=== PATIENT | female | born 1950 | race Caucasian/White ===

== ENCOUNTER 2018-07-11 16:43 | Emergency (ER) | payer OTHER ==
[~2018-07-11] VITALS: Ht 152.4 cm; Wt 109.8 kg
[2018-07-11 17:03] VITALS: Ht 152.4 cm; Wt 109.8 kg
[2018-07-11 17:37] VITALS: BP 136/78
== END 2018-07-11 17:37 | disposition home or self-care (01) ==
LOC: ED 16:43
DX: L84 Corns and callosities (principal); E66.01 Morbid (severe) obesity due to excess calories; Z98.890 Other specified postprocedural states

== ENCOUNTER 2019-01-27 01:25 | Inpatient (IN) | payer OTHER ==
[~2019-01-27] VITALS: Ht 162.6 cm; Wt 101.6 kg
--- NOTE | 2019-01-27 01:43 | NUR ---
PT INCONTINENT. POOR SKIN. ATTEMPTING TO OBTAIN VITALS AND PROVIDE INCONTINENT CARE.
[2019-01-27 02:08] LABS: PLATELET COUNT 344 x10^3mcL (130-400)
--- NOTE | 2019-01-27 02:08 | NUR ---
PT PRESENTS TO ED VIA EMS FOR EVAL. PER REPORT RECEIVED, PT LIVES WITH SON WHO CALLED 911 BECAUSE PT IS NOT ACTING HERSELF. PT DENIES ALL C/O TO EMT AND IS AAOX4. PT WAS REFUSING TRANSFER TO ED. PT IS WHEELCHAIR BOUND AND INCONTINENT. UPON ARRIVAL TO ED, PT NOTED TO BE AAOX4, COOPERATIVE, DENIES ALL C/O AND PAIN. NOTED TO HAVE POOR HYGIENE. WHILE INCONTINENT CARE, PT NOTED TO HAVE REDNESS AND RAW SKIN FROM LOWER ABDOMEN TO GENITAL AREA. +YELLOW EXUDATE, FOUL ODOR, TENDERNESS, SWELLING. REDNESS AND WOUND ALSO NOTED TO LOWER BACK/BUTTOCKS AREA. SKIN TEAR TO L FOREARM IN 2 PLACES. PICTURES TAKEN BY ABE RN TO ADD TO CHART. INCONTINENT CARE GIVEN BY 3 RNs. PT TOLERATED PROCEDURE FAIRLY DUE TO PAIN. ERP, DR ARMAS, AWARE. ATTEMPTED TO OBTAIN URINE SPECIMEN. UNABLE TO ADVANCE CATHETER DUE TO PAIN AND SWELLING. EMT, EVERT, AT BEDSIDE ATTEMPTING TO OBTAIN EKG. PT HAS A HARD TIME LYING ON BACK DUE TO RAW SKIN/WOUNDS.
[2019-01-27 02:11] LABS: BASOPHIL % 0 % (0-2)
[2019-01-27 02:19] LABS: rbc morphology (normal/abnorm) ABNORMAL (NORMAL); tear drop cell (dacryocyte) 1+
[2019-01-27 02:23] LABS: BILIRUBIN TOTAL 0.65 mg/dL (0.20-1.00); CALCIUM 9.4 mg/dL (8.5-10.1); CARBON DIOXIDE 33.7 mmol/L (21-32); TOTAL PROTEIN, SERUM 7.3 g/dL (6.4-8.2)
--- NOTE | 2019-01-27 02:23 | NUR ---
X-RAY TECH AT BEDSIDE. PT REFUSING AT THIS TIME. PT DOESN'T WANT TO LAY ON HER BACK AND DOESN'T WANT HARD BOARD OF X-RAY TO BE PLACED ON HER BACK.
--- NOTE | 2019-01-27 02:24 | NUR ---
PT OFFERED PILLOW AND BLANKET BUT REFUSED AT THIS TIME.
[2019-01-27 02:26] LABS: ALBUMIN 2.9 g/dL (3.4-5.0)
[2019-01-27 02:28] LABS: POTASSIUM SERUM 2.3 mmol/L (3.5-5.1)
[2019-01-27] MEDS ORDERED: GOOD SENSE ASPI81 M3 PO (02:34)
[2019-01-27] MEDS ORDERED: HYDROCHLOROTHIA25 MG PO (02:34)
[2019-01-27] MEDS ORDERED: LEXAPRO5 M1 PO (02:35)
[2019-01-27] MEDS ORDERED: D3-50001 TAB PO (02:35)
[2019-01-27] MEDS ORDERED: MIRTAZAPINE15 M2 PO (02:37)
--- NOTE | 2019-01-27 02:37 | NUR ---
MED REC DONE. VERIFIED WITH SON.
--- NOTE | 2019-01-27 02:38 | NUR ---
PT'S SON AT BEDSIDE - JENNIFER SMYTH (#[phone]) - STS HE IS PT'S MEDICAL RECORDS ASSISTANT AND TODAY HE NOTED PT TO BE COMBATIVE AND INCONTINENT WHICH IS NOT COMMON TO PT. SON ALSO STATES HE ONLY NOTED REDNESS TO SKIN IN THE LAST 48HRS BECAUSE PT HAS NOT BEEN ALLOWING HIM TO CLEAN HER DUE TO PAIN. SON ALSO REPORTS THAT TUCKPOINTER WAS RUDE TO PT SO "I KICKED HER OUT AND THEY NEVER SENT ANOTHER ONE." SON ALSO STS THAT DUE TO HEAVY WORK SCHEDULE HE CHECKS ON PT IN THE AM TO GIVE PT MEDS AND FOOD AND AGAIN AT NIGHT TO ASSIST HER TO BR. AND OTHER SON ASSIST DURING THE DAY BUT NOT MUCH. IS ALCOHOLIC.
--- NOTE | 2019-01-27 03:24 | NUR ---
PT INCONTINENT OF URINE. UNABLE TO COLLECT SPECIMEN AT THIS TIME. INCONTINENT CARE GIVEN. PT ROTATED IN BED TO PREVENT SKIN BREAKDOWN. PT COOPERATIVE AT TIME AND REFUSING ROTATION AT TIMES DUE TO PAIN.
--- NOTE | 2019-01-27 03:38 | NUR ---
ANTIBIOTIC MED ADMINISTRATION PENDING POTASSIUM MED COMPLETION.
--- NOTE | 2019-01-27 04:23 | NUR ---
SPOKE WITH [place] DIVISION HEAD - INFORMATION PROVIDED ON PT'S PRESENTATION AND CURRENT STATUS. PER CONVERSATION, PT TO POSSIBLY TRANSFER TO [place] FOR INSURANCE REASONS. PT AGREED TO TRANSFER IF SON APPROVES. SON'S CONTACT # GIVEN TO DIVISION HEAD.
--- NOTE | 2019-01-27 04:25 | NUR ---
PT SLEEPING COMFORTABLY IN BED. EASILY AROUSABLE WITH VERBAL STIMULI. BREATHING EASY AND UNLABORED. SPEAKS IN FULL CLEAR SENTENCES. NO OBVIOUS DISTRESS AT THIS TIME. WILL CONTINUE TO MONITOR.
[2019-01-27 05:34] LABS: PHOSPHOROUS 3.3 mg/dL (2.5-4.9)
--- NOTE | 2019-01-27 06:01 | NUR ---
PT INCONTINENT OF URINE AND STOOL. INCONTINENT CARE GIVEN. PT ROTATED IN BED TO PREVENT WORSENING OF SKIN BREADOWN. PT TOLERATING FAIRLY DUE TO PAIN. DENIES PAIN BUT NOTED TO MOAN ON ROTATION AND INCONTINENT CARE. WILL CONTINUE TO MONITOR.
--- NOTE | 2019-01-27 06:47 | NUR ---
PT BEING ADMITTED. AWAITING BED ASSIGNMENT.
--- NOTE | 2019-01-27 07:15 | NUR ---
PER HARVINDER SINGER, PT OK TO BE ADMITTED UPSTAIRS WITHOUT URINE SAMPLE PER MD ARMAS.
--- NOTE | 2019-01-27 07:20 | NUR ---
REPORT GIVEN TO SIMON BLANTON. OPPORTUNITY GIVEN TO ASK QUESTIONS. PT'S CARE COMPLETED BY THIS RN AT THIS TIME.
--- NOTE | 2019-01-27 07:40 | NUR ---
PT IS AWAKE AND ALERT X 4. DENIES ANY PAIN AT THIS TIME, UNLESS TOUCHED. MOVED PATIENT ON GURNEY TO POSITION OF COMFORT, CHECKED FOR INCONTINENCE OF URINE AND FECES AND PT IS CLEAN AT THIS TIME. NS AND K+ INFUSING AT THIS TIME WITH NO INCIDENCE. PT REMAINS HOOKED UP TO FULL MONITORS, SIDE RAILS UP, IN FULL VIEW OF NURSING STATION, WILL CONTINUE TO MONITOR.
--- NOTE | 2019-01-27 07:52 | NUR ---
REPORT GIVEN TO MASSIEL ON MS/ T FOR FURTHER CARE OF PT
--- NOTE | 2019-01-27 08:00 | NUR ---
RECEIVED PATIENT FROM ED. PATIENT IS AWAKE, ALERT AND ORIENTED. UNABLE TO AMBULATE. TRANSITIONED FROM GUERNEY TO BED WITH 3 PERSON ASSIST. VS STABLE. TELE#13 APPLIED TO PATIENT READING SR, HR 70. ERYTHEMA NOTED TO ABD AND GENITAL AREA WITH ASSOCIATED FOUL ODOR. PATIENT ADMITTED FOR CELLULITIS AND HYPOKALEMIA. PATIENT DENIES CRAMPING AND CHEST PAIN. ON ROOM AIR, BREATHING EVEN AND UNLABORED. IV SITE NOTED TO RAC, IVF INFUSING WELL ORDERED, NO S/S ERYTHEMA AT SITE. K-RIDER REMAINS RUNNING FROM ED AT THIS TIME. PATIENT ORIENTED TO ROOM. LOW AIR LOSS MATTRESS IN PLACE. FALL PREC IN PLACE. SEIZURE PREC IN PLACE. WILL CONTINUE PLAN OF CARE.
[2019-01-27 08:40] VITALS: BP 102/65
--- NOTE | 2019-01-27 11:13 | NUR ---
INTERDRY APPLIED TO ABD FOLD AT THIS TIME.
[2019-01-27 12:52] VITALS: BP 107/64
--- NOTE | 2019-01-27 13:25 | NUR ---
PATIENT REFUSED CATHETER PLACEMENT AT THIS TIME.
--- NOTE | 2019-01-27 13:27 | NUR ---
PATIENT REFUSING ALL MEDICATIONS AT THIS TIME. PATIENT EDUCATED ON REFUSAL AND IMPORTANCE OF CARE WHILE IN THE HOSPITAL. PATIENT STATES "I WOULDN'T BE HERE IF IT WASN'T FOR MY STUPID SON. I WANT TO GO HOME."
--- NOTE | 2019-01-27 13:43 | NUR ---
PATIENT REFUSES ADDITIONAL PHOTOGRAPHS OF WOUNDS.
[2019-01-27 16:39] VITALS: BP 102/64
[2019-01-27 18:13] LABS: CHLORIDE SERUM 99 mmol/L (98-107); CREATININE SERUM 0.6 mg/dL (0.6-1.0); GFR1 > 60 mL/min; GLUCOSE SERUM 71 mg/dL (74-106); SODIUM SERUM 139 mmol/L (136-145)
[2019-01-27 18:37] LABS: POTASSIUM SERUM 2.6 mmol/L (3.5-5.1)
--- NOTE | 2019-01-27 18:53 | NUR ---
PATIENT RESTING EASY IN NO ACUT DISTRESS. FALL PREC IN PLACE. PATIENT CARE TO BE ENDOSRED TO TABLE WORKER PACKAGER NURSE.
--- NOTE | 2019-01-27 19:10 | NUR ---
RECEIVED PT FROM PREVIOUS SHIFT NURSE. PT AOX4, DENIES FLORES/DIZZINESS. TELE #2, SR, HR 65. DENIES CP/PRESSURE. DENIES SOB/DIFFICULTY BREATHING, ON RA. IV TO RAC, INTACT AND PATENT. BED IN LOWEST POSITION. CALL LIGHT WITHIN REACH. WILL CONTINUE TO MONITOR.
[2019-01-27 20:59] VITALS: BP 100/52
[2019-01-27 23:22] VITALS: Ht 162.6 cm; Wt 101.6 kg
--- NOTE | 2019-01-28 02:30 | NUR ---
PT RESTING IN BED. RR EVEN AND UNLABORED. IN NO ACUTE DISTRESS. CALL LIGHT WITHIN REACH. BED IN LOWEST POSITION. WILL CONTINUE TO MONITOR.
[2019-01-28 04:03] VITALS: BP 89/42
[2019-01-28 05:56] VITALS: BP 86/44
--- NOTE | 2019-01-28 05:56 | NUR ---
BP 86/44 MAP 58, HR 80. PT ASYMPTOMATIC. DR. LABMERT PAGED. AWAITING CALL BACK.
[2019-01-28 06:29] LABS: BASOPHIL % 0.4 % (0-2); PLATELET COUNT 276 x10^3mcL (130-400)
--- NOTE | 2019-01-28 06:35 | NUR ---
DR. LAMBERT PAGED FOR SECOND TIME, AWAITING CALL BACK.
[2019-01-28 06:37] LABS: ALKALINE PHOSPHATASE 82 U/L (46-116); ALT/SGPT 19 U/L (14-59); AST/SGOT 21 U/L (15-37); BILIRUBIN TOTAL 0.45 mg/dL (0.20-1.00); CALCIUM 8.6 mg/dL (8.5-10.1); CARBON DIOXIDE 31.7 mmol/L (21-32); CHLORIDE SERUM 100 mmol/L (98-107); CREATININE SERUM 0.6 mg/dL (0.6-1.0); GFR1 > 60 mL/min; GLUCOSE SERUM 63 mg/dL (74-106); MAGNESIUM 1.9 mg/dL (1.8-2.4); SODIUM SERUM 143 mmol/L (136-145)
--- NOTE | 2019-01-28 06:40 | NUR ---
PER DR. LAMBERT, GIVE 1L NS BOLUS FOR LOW BP.
[2019-01-28 06:55] LABS: POTASSIUM SERUM 2.6 mmol/L (3.5-5.1); TOTAL PROTEIN, SERUM 5.5 g/dL (6.4-8.2)
--- NOTE | 2019-01-28 07:40 | NUR ---
RECEIVED PT FROM EMERGENCY COMMUNICATIONS DISPATCHER RN. Jack/ROSALINA. TELE#2. DENIES CHEST PAIN/PRESSURE. RESPIRATIONS EQUAL AND UNLABORED ON RA. DENIES SOB. IV TO LH PATENT AND INFUSING. NO REDNESS OR SWELLING NOTED. PT STILL REFUSING BENAVIDEZ CATHETER. PT STATES I DO NOT NEED IT. PT ENCOURAGED TO CALL WHEN WET TO BE CHANGED RIGHT AWAY. PT IN BED WITH GOWN OFF PT STATES "I DO NOT WANT MY GOWN ON. I JUST WANT TO BE LEFT ALONE" ABDOMINAL FOLD ERYTHEMA NOTED, TOSHIA. WILL CONTINUE TO MONITOR. CALL LIGHT IN REACH. BED IN LOWEST POSITION.
--- NOTE | 2019-01-28 07:41 | NUR ---
PAGED DR. LAMBERT REGARDING POTASSIUM OF 2.6. AWAITING CALL BACK.
--- NOTE | 2019-01-28 07:54 | NUR ---
SPOKE WITH DR. LAMBERT REGARDING POTASSIUM OF 2.6. PER DR LAMEBRT ORDER K-RIDER 40 MEQ IV ONCE AND POTASSIUM CLORIDE PO 40 MEQ ONCE. CONFIRMED ORDER TORB.
--- NOTE | 2019-01-28 08:36 | NUR ---
PT SITTING UP IN BED. NO ACUTE RESP DISTRESS NOTED ON RA. PT IN BED WITH GOWN OFF. PT REFUSING TO HAVE GOWN ON. IV BOLUS PATENT AND INFUSING. NO REDNESS OR SWELLING NOTED. GIVEN PO MEDS. TOLERATED WELL. PT STILL REFUSING BENAVIDEZ CATHETER. PT STATES I DO NOT WANT IT. WILL CONTINUE TO MONITOR. CALL LIGHT IN REACH. BED IN LOWEST POSITION.
[2019-01-28 08:38] VITALS: BP 89/48
--- NOTE | 2019-01-28 10:45 | NUR ---
P.T. NOTES P.T. RE EVAL COMPLETED; Pt REFUSED FURTHER TRIAL P.T. INTERVENTION; NON AMBULATORY; NURSING TO DO PROM B UE/LE BRYSON ONCE DAILY INC W/ ADLs.
--- NOTE | 2019-01-28 11:54 | NUR ---
SPOKE WITH VINNY FROM [facility] GIVEN UPDATES ON PT.
--- NOTE | 2019-01-28 12:09 | NUR ---
SECOND BAG OF POTASSIUM RUNNING AT 50ML/HR. IV PATENT AND INFUSING. NO REDNESS OR SWELLING NOTED.
[2019-01-28 12:48] VITALS: BP 98/44
--- NOTE | 2019-01-28 14:18 | NUR ---
PT SITTING UP IN BED. NO ACUTE RESP DISTRESS NOTED ON RA. DR. ZULUAGA AT BEDSIDE. PER DR. PADILLA WILL ORDER ANOTHER POTASSIUM LAB TO BE DONE LATER TODAY. PT REFUSED ORAL MEDICATION. PT STATES " I DONT WANT THAT CRAP. YOU DON'T QUIT" PT CHANGED AND REPOSITIONED. APPLIED MYCOSTATIN POWDER TO ABDOMEN AND CHANGED OUT INTERDRY. WILL CONTINUE TO MONITOR. CALL LIGHT IN REACH. BED IN LOWEST POSITION.
[2019-01-28 16:49] VITALS: BP 116/66
--- NOTE | 2019-01-28 18:25 | NUR ---
PT REPOSITIONED SITTING UP IN BED. NO ACUTE RESP DISTRESS NOTED ON RA. TELE#2. PT CHANGED AND CLEANED. APPLIED MYCOSTATIN POWDER AND INTERDRY TO ABOMEN FOLD. PT C/O CRAMPING TO LEGS. PT DOES NOT WANT ANY MEDICATION OR HER LEGS ELEVATED. IV SALINE LOCKED TO LH. NO REDNESS OR SWELLING NOTED. WILL ENDORSE TO EXAMINATION SUPERVISOR RN. CALL LIGHT IN REACH. BED IN LOWEST POSITION.
[2019-01-28 18:38] LABS: CALCIUM 8.5 mg/dL (8.5-10.1); CARBON DIOXIDE 32.3 mmol/L (21-32); CHLORIDE SERUM 100 mmol/L (98-107); CREATININE SERUM 0.7 mg/dL (0.6-1.0); GFR1 > 60 mL/min; GLUCOSE SERUM 89 mg/dL (74-106); POTASSIUM SERUM 3.5 mmol/L (3.5-5.1); SODIUM SERUM 140 mmol/L (136-145)
--- NOTE | 2019-01-28 19:10 | NUR ---
RECEIVED PT FROM PREVIOUS SHIFT NURSE. PT AOX4. DENIES FLORES/DIZZINESS. TELE #2, ST WITH PVCS, HR 104. DENIES CP/PRESSURE. DENIES SOB/DIFFICULTY BREATHING, ON RA. IV TO L. HAND, INTACT AND PATENT. BED IN LOWEST POSITION. CALL LIGHT WITHIN REACH. WILL CONTINUE TO MONITOR.
[2019-01-28 22:17] VITALS: BP 118/72
--- NOTE | 2019-01-29 02:30 | NUR ---
PT RESTING IN BED. RR EVEN AND UNLABORED. NO ACUTE DISTRESS NOTED. CALL LIGHT WITHIN REACH. BED IN LOWEST POSITION. CALL LIGHT WITHIN REACH. WILL CONTINUE TO MONITOR.
[2019-01-29 06:45] VITALS: BP 118/58
[2019-01-29 06:46] LABS: ALKALINE PHOSPHATASE 80 U/L (46-116); ALT/SGPT 20 U/L (14-59); AST/SGOT 24 U/L (15-37); BASOPHIL % 0.2 % (0-2); BILIRUBIN TOTAL 0.4 mg/dL (0.20-1.00); CALCIUM 8.5 mg/dL (8.5-10.1); CARBON DIOXIDE 34.4 mmol/L (21-32); CHLORIDE SERUM 100 mmol/L (98-107); CREATININE SERUM 0.7 mg/dL (0.6-1.0); GFR1 > 60 mL/min; GLUCOSE SERUM 75 mg/dL (74-106); MAGNESIUM 1.7 mg/dL (1.8-2.4); PHOSPHOROUS 2.4 mg/dL (2.5-4.9); PLATELET COUNT 293 x10^3mcL (130-400); POTASSIUM SERUM 3.5 mmol/L (3.5-5.1); SODIUM SERUM 140 mmol/L (136-145)
[2019-01-29 06:47] LABS: ALBUMIN 2.3 g/dL (3.4-5.0); TOTAL PROTEIN, SERUM 5.8 g/dL (6.4-8.2)
--- NOTE | 2019-01-29 07:20 | NUR ---
RECEIVED PT FROM NIGHT NURSE. PT IS LAYING DOWN IN BED WITH HOB UP AND EYES OPEN. RESPIRATIONS EVEN AND UNLABORED ON ROOM AIR. PT IS ASKING TO BE MOVED IN BED. PULLED PT UP IN BED AND MADE PT COMFORTABLE IN BED. IV SITE PATNET WITH NO SIGNS OF ERYTHEMA OR SWELLING. TELE MONITOR 2 PRESENT. BED IN LOWEST POSITION, CALL LIGHT WITHIN REACH. WILL CONTINUE TO MONITOR.
[2019-01-29 07:24] LABS: RED CELL DISTRIBUTION WIDTH 23.2 % (11.5-14.5)
[2019-01-29 08:35] VITALS: BP 125/78
[2019-01-29 12:19] VITALS: BP 100/63
[2019-01-29 12:32] VITALS: BP 100/63
--- NOTE | 2019-01-29 14:30 | NUR ---
PT AWAKE, ALERT AND ORIENTED AT TIME OF DISCHARGE. PT DISCHARGED HOME AND WENT TO THE LOBBY VIA WHEELCHAIR ACCOMPANIED BY NURSE AND FAMILY MEMBERS WITH BELONGINGS IN HAND. FAMILY MEMBERS HAVE A WHEELCHAIR AT HOME AND STATED THAT THEY WILL BE ABLE TO HELP HER GET INTO AND OUT OF THE CAR. PT PROVIDED WITH EDUCATION, PRESCRIPTION AND FOLLOW UP APPOINTMENT. ALSO INFORMED THE FAMILY OF THIS INFORMATION. PT AND FAMILY MEMBER VERBALIZED UNDERSTANDING OF THE INFORMATION. IV CATHETER REMOVED AND CATHETER FULLY INTACT. TELE MONTIOR REMOVED AND RETURNED TO TELE STATION. ALL QUESTIONS AND CONCERNS ADDRESSED.
--- NOTE | 2019-01-31 08:24 | NUR ---
WOUND CARE EVALUATION NOT DONE, PT. DISCHARGED.
== END 2019-01-29 16:44 | disposition home or self-care (01) | DRG 603 ==
LOC: ED 01:25 → DU 07:19
PROVIDERS: Emergency Medicine; Internal Medicine; Internal Medicine Pulmonary Disease; ADMIT Internal Medicine Pulmonary Disease
DX: L03.311 Cellulitis of abdominal wall (principal); E87.6 Hypokalemia; I10 Essential (primary) hypertension; M19.90 Unspecified osteoarthritis, unspecified site; E66.01 Morbid (severe) obesity due to excess calories; Z68.38 Body mass index [BMI] 38.0-38.9, adult; Z98.84 Bariatric surgery status
CPT/HCPCS: 97164; G0378; J0690; J1644; J2270; J2405; J3475; J3480; J7030